=== PATIENT | female | born 1940 | race Caucasian/White ===

== ENCOUNTER 2017-07-19 07:15 | Day surgery (SDC) | payer OTHER ==
[2017-07-16 14:16] VITALS: BMI 27.3
[2017-07-19] MEDS ORDERED: PROPOFOL 20 ML ONE ×2 (07:19)
[2017-07-19] MEDS ORDERED: LIDOCAINE HCL/PF 2% SDV 5ML VIAL ONE (07:27)
[2017-07-19 09:34] VITALS: BP 109/59; PULSE 65; TEMP 98
--- NOTE | 2017-07-20 15:23 | PATH ---
Surgical Pathology Report Patient Name: BRIAN FELDER [facility]. Rec. #: [id number] /Age/Gender: 1940 (Age: 77) / F Account: [id number] Location: [facility]-ENDOSCOPY Taken: 07/19/2017 Received: 07/19/2017 Reported: 07/20/2017 Physicians: Hawk Mcbride M.D. Specimen(s) Received A: DISTAL LEFT COLON B: RECTO SIGMOID BX Clinical History Family history of colonic polyps Polyps Final Diagnosis A. DISTAL LEFT COLON, BIOPSY: FRAGMENTS OF TUBULOVILLOUS ADENOMA. B. RECTOSIGMOID, BIOPSY: HYPERPLASTIC POLYP. Electronically Signed More Verma M.D. Gross Description A. Received in formalin, labeled "distal left colon" are 2 rod, irregular portions of soft tissue measuring 0.1 and 0.5 cm. in greatest dimension. The specimens are submitted in toto in one cassette. B. Received in formalin, labeled "rectosigmoid" are 2 rod, irregular portions of soft tissue measuring 0.3 and 0.4 cm. in greatest dimension. The specimens are submitted in toto in one cassette. DL/07/19/2017 saudi/07/19/2017
== END 2017-07-19 09:35 | disposition home or self-care (01) ==
LOC: FASU-ENDO 07:15
PROVIDERS: ATTEND Internal Medicine Gastroenterology
PROC: 3E0H8GC Introduction of Other Therapeutic Substance into Lower GI, Via Natural or Artificial Opening Endoscopic (ICD-10-PCS; 2017-07-19)
PROC: 0DBM8ZX Excision of Descending Colon, Via Natural or Artificial Opening Endoscopic, Diagnostic (ICD-10-PCS; principal; 2017-07-19 08:29)
PROC: 0DBN8ZX Excision of Sigmoid Colon, Via Natural or Artificial Opening Endoscopic, Diagnostic (ICD-10-PCS; 2017-07-19 08:29)
DX: Z83.71 Family history of colonic polyps (principal); D12.4 Benign neoplasm of descending colon; K63.5 Polyp of colon; K57.30 Diverticulosis of large intestine without perforation or abscess without bleeding
CPT/HCPCS: 88305-TC